=== PATIENT | female | born 1960 | race Caucasian/White ===

== ENCOUNTER → 2021-06-05 15:10 | Outpatient (CLI) | payer OTHER, SELFPAY ==
--- NOTE | ~2021-06-05 | MM_ITS ---
EXAMINATION: MM screening mario BI w gill HISTORY: Screening mammogram TECHNIQUE: Craniocaudal and mediolateral oblique 3-D tomosynthesis images were obtained and synthetic 2-D images were generated. CAD analysis was submitted and interpreted. COMPARISON: No prior mammogram is available for comparison at this institution. BREAST PARENCHYMAL COMPOSITION: There are scattered areas of fibroglandular density. FINDINGS: There is no evidence of suspicious mass, calcification, or architectural distortion to sugg est malignancy in either breast. IMPRESSION: 1. No mammographic evidence of malignancy. 2. Recommend routine screening mammography in one year. BI-RADS Category 1: Negative Reviewed, dictated and finalized at location A.
== END ==
PROVIDERS: PCP Nurse Practitioner Family; Visit Provider Obstetrics & Gynecology
DX: Z12.31 Encounter for screening mammogram for malignant neoplasm of breast (principal)
CPT/HCPCS: 77063; 77067

== ENCOUNTER → 2022-12-10 09:46 | Outpatient (CLI) | payer BC, SELFPAY ==
--- NOTE | ~2022-12-10 | MM_ITS ---
EXAMINATION: MM screening mario BI w gill HISTORY: Screening TECHNIQUE: Craniocaudal and mediolateral oblique 3-D tomosynthesis images were obtained and synthetic 2-D images were generated. CAD analysis was submitted and interpreted. COMPARISON: 06/05/2021 BREAST PARENCHYMAL COMPOSITION: There are scattered areas of fibroglandular density. FINDINGS: There is no evidence of suspicious mass, calcification, or architectural distortion to sugg est malignancy in either breast. There has been no suspicious interval change. IMPRESSION: 1. No mammographic evidence of malignancy. 2. Recommend routine screening mammography in one year. BI-RADS Category 1: Negative Reviewed, dictated and finalized at location B. OGRAPHS CURATOR
== END ==
PROVIDERS: PCP Internal Medicine; Visit Provider Internal Medicine
DX: Z12.31 Encounter for screening mammogram for malignant neoplasm of breast (principal)
CPT/HCPCS: 77063; 77067

== ENCOUNTER → 2023-03-18 10:07 | Outpatient (CLI) | payer BC, SELFPAY ==
--- NOTE | ~2023-03-18 | US_ITS ---
US abdomen complete DATE: 03/18/2023 10:28 INDICATION: Anemia, hereditary spherocytosis TECHNIQUE: Real-time imaging and Doppler analysis of the abdomen COMPARISON: None FINDINGS: The gallbladder is surgically absent. There is hepatic steatosis. No hepatic space-occupying mass lesion is evident. Normal hepatopedal por erika venous flow direction. The pancreas is partially obscured by bowel gas. The common bile duct measures 3 mm, normal. The kidneys each measure approximately 10 cm length. No renal mass lesion or hydronephrosis is eviden t. There is splenomegaly, spleen measuring up to 18.5 cm length. The abdominal aorta is of normal caliber. Inferior vena cava is unremarkable. IMPRESSION: Status post cholecystectomy Hepatic steatosis Splenomegaly Limited evaluation of the pancreas Reviewed, dictated and finalized at Location A. Reviewed, dictated and finalized at location []
== END ==
PROVIDERS: PCP Internal Medicine
DX: D58.0 Hereditary spherocytosis (principal); K76.0 Fatty (change of) liver, not elsewhere classified; R16.1 Splenomegaly, not elsewhere classified; Z90.49 Acquired absence of other specified parts of digestive tract
CPT/HCPCS: 76700

== ENCOUNTER 2024-10-23 12:28 | Outpatient (CLI) | payer BC, SELFPAY ==
--- NOTE | ~2024-10-23 | MM_ITS ---
EXAMINATION: MM screening mario BI w gill HISTORY: Screening mammogram TECHNIQUE: Craniocaudal and mediolateral oblique 3-D tomosynthesis images were obtained and synthetic 2-D images were generated. CAD analysis was submitted and interpreted. COMPARISON: 12/10/2022, 06/05/2021 BREAST PARENCHYMAL COMPOSITION:Not Dense. The breasts are almost entirely fatty FINDINGS: No suspicious mass, calcification, or architectural distortion are identified in either odalys ast to suggest malignancy. There has been no suspicious interval change. IMPRESSION: No mammographic evidence of malignancy. Recommend routine screening mammography in one year. BI-RADS Category 1: Negative Reviewed, dictated and finalized at location . WARE CONFIGURATION ANALYST
== END 2024-10-23 12:29 | disposition home or self-care (01) ==
LOC: MICIMG 12:29
PROVIDERS: PCP Internal Medicine; Visit Provider Internal Medicine
DX: Z12.31 Encounter for screening mammogram for malignant neoplasm of breast (principal)
CPT/HCPCS: 77063; 77067

== ENCOUNTER 2025-03-11 06:27 | Emergency (ER) | payer BC, SELFPAY ==
--- NOTE | ~2025-03-11 | XR_ITS ---
Left wrist Technique: PA, oblique, lateral, and ulnar deviation views were obtained. Clinical History: Pain Findings: There is transverse fracture the distal radius. No other definite fracture identified Joint spaces are preserved. Soft tissues are unremarkable. Impression: Transverse fracture the distal radius, with prominent dorsal irregularity of distal radius on the lat eral view. Consider CT to better evaluate fracture morphology, if indicated. Reviewed, dictated and finalized at location . Impression: Transverse fracture the distal radius, with prominent dorsal irregularity of di stal radius on the lateral view. Consider CT to better evaluate fracture morpho logy, if indicated.
--- OUTSIDE RECORDS SUMMARY | 2025-03-11 06:28 | XMS_ITS | Encounter Summary ---
Author Organization [facility] Address [address] [place] [address] Phone Care Team Providers Care Felt Cutter Name Role Phone Chava Yeboah MD Primary Care Provider [phone] Cora Saenz CUSTOMS AGENT Unavailable [phone] Reason for Visit * Reason Comments Medication Refill Encounter Details Date Type Department Care Team (Late st Contact Info) Description 02/11/2024 Refill [facility] [address] [address] Floyd Angel MD [address] [place] [phone] Medication Refill Social History Tobacco Use Types Packs/Day Years Used Date Smoking Tobacco: Never Smokeless Tobacco: Never Alcohol Use Standard Drinks/Week Comments Yes 6 (1 standard drink = 0.6 oz pur e alcohol) per year Comments Unknown Sex and Gender Information Value Date Recorded Sex Assigned at Not on file Legal Sex Female 12:16 PM CDT Gender Identity Not on file Sexual Orientation Not on file documented as of this encounter Miscellaneous Notes * Telephone Encounter - Madiha Esposito RN - 02/13/2024 8:32 AM CDT No follow up appointment * Telephone Encounter - Madiha Esposito RN - 02/13/2024 7:57 AM CDT Refill request from pharmacy. Please fill if appropriate. documented in this encounter Plan of Treatment Not on file documented as of this encounter Visit Diagnoses Diagnosis Hereditary spherocytic hemolytic anemia (HCC) Hereditary spherocytosis documented in this encounter Care Teams Felt Cutter Relationship Specialty Start Date End Date Chava Yeboah MD [address] [facility] [address] [place] [address] PCP - General Internal Medicine 01/03/23 Cora Saenz APRN [address] [facility] [address] [place] [address] Advanced Practice Nurse 01/03/23 documented as of this encounter
--- OUTSIDE RECORDS SUMMARY | 2025-03-11 06:28 | XMS_ITS | Encounter Summary ---
Author Organization [facility] Address [address] [place] [address] Phone Care Team Providers Care Electric Motor Repairman Name Role Phone Chava Yeboah MD Primary Care Provider [phone] Cora Saenz APRN Unavailable [phone] Reason for Visit * Reason Comments Medication Refill Encounter Details Date Type Department Care Team (Late st Contact Info) Description 05/26/2023 Refill [facility] [address] [place] [address] Floyd Angel MD [address] [place] [phone] Medication Refill Social History Tobacco Use Types [...] on file documented as of this encounter Plan of Treatment Not on file documented as of this encounter Visit Diagnoses Diagnosis Hereditary spherocytic hemolytic anemia (HCC) Hereditary spherocytosis documented in this encounter Care Teams Electric Motor Repairman Relationship Specialty Start Date End Date Chava Yeboah MD [address] [facility] [address] [place] [address] PCP - General Internal Medicine 01/03/23 Cora Saenz APRN [facility] [address] [address] Advanced Practice Nurse 01/03/23 documented as of this encounter
--- OUTSIDE RECORDS SUMMARY | 2025-03-11 06:28 | XMS_ITS | Clinical Summary ---
Author Organization [facility] Address [address] [place] [address] Phone Care Team Providers Care Sander Wooden Pencils Name Role Phone Chava Yeboah MD Primary Care Provider [phone] Cora Saenz TRAVEL RN Unavailable [phone] Allergies Active Allergy Reactions Criticality Noted Date Comments Poison Melvi Extract Itching 02/22/2023 Medications levothyroxine (SYNTHROID) 125 MCG Tablet Take 125 mcg by mouth every morning. 02/01/2023 Active lisinopril (PRINIVIL, ZESTRIL) 10 MG Tablet 12/15/2022 Active ferrous sulfate 325 (65 Fe) MG Tablet Take 325 mg by mouth. 12/17/2022 Active guar gum (BENEFIBER) Powder Take 1 Tbsp by mouth daily. Active folic acid (FOLVITE) 1 MG TabletIndication s:Hereditary spherocytic hemolytic anemia (HCC) TAKE 1 TABLET BY MOUTH EVERY DAY 90 Tablet 1 05/26/2023 Active Active Problems Problem Noted Date Diagnosed Date Hereditary spherocytic hemolytic anemia 03/01/20 Family History Medical History Relation Name Comments Congestive Heart Failure Father Diabetes Father Renal Failure Mother Relation Name Status Comments Brother 1 Alive Brother 2 Alive Child Alive Father Mother Sister 1 Alive Sister 2 Alive Sister 3 Alive Social History Tobacco Use Types Packs/Day Years Used Date Smoking Tobacco: Never Smokeless Tobacco: Never Tobacco Cessation:Counseling Given: Not Answered Alcohol Use Standard Drinks/Week Comments Yes 6 (1 standard drink = 0.6 oz pur e alcohol) per year Comments Unknown Sex and Gender Information Value Date Recorded Sex Assigned at Not on file Legal Sex Female 12:16 PM CDT Gender Identity Not on file Sexual Orientation Not on file Last Filed Vital Signs Vital Sign Reading Time Taken Comments Blood Pressure 124/72 03/22/2023 11:51 AM CDT Pulse 77 03/22/2023 11:51 AM CDT Temperature 36.8 C (98.2 F) 03/22/2023 11:51 AM CDT Respiratory Rate 18 03/22/2023 11:51 AM CDT Oxygen Saturation 99% 03/22/2023 11:51 AM CDT Inhaled Oxygen Concentration - - Weight 85.8 kg (189 lb 1.6 oz) 03/22/2023 11:51 AM CDT Height 162.6 cm (5' 4) 03/22/2023 11:51 AM CDT Body Mass Index 32.46 03/22/2023 11:51 AM CDT Plan of Treatment Health Maintenance Due Date Last Done Comments DEXA Bone Density 1959 Hepatitis C Virus (HCV) Screening 1959 Mammogram 1959 Pap Smear 1980 Cervical Cancer Screening (CCS) 1989 HPV/Cotest 1989 Colonoscopy 2004 Colorectal Cancer Screening 2004 Cologuard 2009 Immunochemical Fecal Occult Blood 2009 Pneumococcal Immunization (5 0+ years) (1 of 1 - PCV) 2009 Zoster Immunization (1 of 2) 2009 Influenza Immunization (#1) 2024 SARS-COV-2 Immunization ( - 2023- season) 2024 Respiratory Syncytial Virus (RSV) Immunization (Adult) (1 - 1-dose 75+ series) 2034 DTaP/Tdap/Td Immunization Discontinued 2020, 07/27/2011 TdaP Immunization Completed 02/09/2021, 07/27/2011 Hepatitis B Immunization Aged Out No longer eligible based on patient's age to complete this topic Meningococcal Immunization (ACWY) Aged Out No longer eligible based on patient's age to complete this topic Rotavirus Immunization Aged Out No lo nger eligible based on patient's age to complete this topic Insurance [facility] Care Teams Sander Wooden Pencils Relationship Specialty Start Date End Date Chava Yeboah MD [address] [address] PCP - General Internal Medicine 01/03/23 Cora Saenz APRN [address] [address] Advanced Practice Nurse 01/03/23
--- OUTSIDE RECORDS SUMMARY | 2025-03-11 06:28 | XMS_ITS | Encounter Summary ---
Author Organization [facility] Address [address] [place] [address] Phone Care Team Providers Care Assembler Metal Furniture Name Role Phone Chava Yeboah MD Primary Care Provider Cora Saenz COMPLIANCE ANALYST Unavailable [phone] Reason for Visit * Reason Comments Medication Refill Encounter Details Date Type Department Care Team (Late st Contact Info) Description 11/23/2023 Refill [facility] [address] [address] Floyd Angel MD [address] [place] [place] [address] Medication Refill Social History Tobacco Use [...] Telephone Encounter - Madiha Esposito RN - 11/23/2023 3:11 PM CST Floyd Angel MD to Sc BF 11/23/23 3:07 PM Patient has no f/u appointment with us. If she does not want to come back to our clinic then needs to get refill with PCP. Thanks E SIFTER AND MILLER * Telephone Encounter - Madiha Esposito RN - 11/23/2023 8:20 AM CST Refill request from pharmacy. Please fill if appropriate. E SIFTER AND MILLER documented in this encounter Plan of Treatment Not on file documented as of this encounter Visit Diagnoses Diagnosis Hereditary spherocytic hemolytic anemia (HCC) Hereditary spherocytosis documented in this encounter Care Teams Assembler Metal Furniture Relationship Specialty Start Date End Date Chava Yeboah MD [address] [address] PCP - General Internal Medicine 01/03/23 Cora Saenz APRN [address] [address] Advanced Practice Nurse 01/03/23 documented as of this encounter
[2025-03-11 06:37] VITALS: BP 144/75; PULSE 80; RESP 18; TEMP 36.9; O2SAT 98
--- OUTSIDE RECORDS SUMMARY | 2025-03-11 07:25 | XMS_ITS | Encounter Summary ---
Author Organization [facility] Address [address] [place] [address] Phone Care Team Providers Care Recyclable Materials Collector Name Role Phone Chava Yeboah MD Primary Care Provider [phone] Cora Saenz APRN Unavailable [phone] Reason for Visit * Reason Comments Medication Refill Encounter Details Date Type Department Care Team (Late st Contact Info) Description 05/26/2023 Refill [facility] [address] [place] [address] Floyd Angel MD [address] [place] [address] [phone] Medication Refill Social History Tobacco Use Types [...] spherocytosis documented in this encounter Care Teams Recyclable Materials Collector Relationship Specialty Start Date End Date Chava Yeboah MD [address] [facility] [address] [place] [address] PCP - General Internal Medicine 01/03/23 Cora Saenz APRN [facility] [address] [address] Advanced Practice Nurse 01/03/23 documented as of this encounter
--- OUTSIDE RECORDS SUMMARY | 2025-03-11 07:25 | XMS_ITS | Clinical Summary ---
Author Organization [facility] Address [address] [place] [address] Phone Care Team Providers Care Blueprint Reader Name Role Phone Chava Yeboah MD Primary Care Provider [phone] Cora Saenz CYBER WORKFORCE DEVELOPER AND MANAGER Unavailable [phone] Allergies Active Allergy Reactions Criticality Noted Date [...] patient's age to complete this topic Insurance [facility] Care Teams Blueprint Reader Relationship Specialty Start Date End Date Chava Yeboah MD [address] [address] PCP - General Internal Medicine 01/03/23 Cora Saenz APRN [address] [address] Advanced Practice Nurse 01/03/23
--- OUTSIDE RECORDS SUMMARY | 2025-03-11 07:25 | XMS_ITS | Encounter Summary ---
Author Organization [facility] Address [address] [place] [address] Phone Care Team Providers Care Burial Vault Setter Name Role Phone Chava Yeboah MD Primary Care Provider [phone] Cora Saenz DIRECTOR SURGICAL Unavailable [phone] Reason for Visit * Reason Comments Medication Refill Encounter Details Date Type Department Care Team (Late st Contact Info) Description 02/11/2024 Refill [facility] [address] [address] Floyd Angel MD [address] [place] [address] Medication Refill Social History Tobacco Use [...] spherocytosis documented in this encounter Care Teams Burial Vault Setter Relationship Specialty Start Date End Date Chava Yeboah MD [address] [facility] [address] [place] [address] PCP - General Internal Medicine 01/03/23 Cora Saenz APRN [address] [facility] [address] [place] [address] Advanced Practice Nurse 01/03/23 documented as of this encounter
--- OUTSIDE RECORDS SUMMARY | 2025-03-11 07:25 | XMS_ITS | Encounter Summary ---
Author Organization [facility] Address [address] [place] [address] Phone Care Team Providers Care Machinery Mover Name Role Phone Chava Yeboah MD Primary Care Provider Cora Saenz ASSISTANT NEWS DIRECTOR Unavailable [phone] Reason for Visit * Reason Comments Medication Refill Encounter Details Date Type Department Care Team (Late st Contact Info) Description 11/23/2023 Refill [facility] [address] [address] Floyd Angel MD [address] [place] [address] Medication Refill Social History Tobacco Use [...] 3:11 PM CST Floyd Angel MD to Dc BF 11/23/23 3:07 PM Patient has no f/u appointment with us. If she does not want to come back to our clinic then needs to get refill with PCP. Thanks RISK ANALYST * Telephone Encounter - Madiha Esposito RN - 11/23/2023 8:20 AM CST Refill request from pharmacy. Please fill if appropriate. RISK ANALYST documented in this encounter Plan of Treatment Not on file documented as of this encounter Visit Diagnoses Diagnosis Hereditary spherocytic hemolytic anemia (HCC) Hereditary spherocytosis documented in this encounter Care Teams Machinery Mover Relationship Specialty Start Date End Date Chava Yeboah MD [address] [address] PCP - General Internal Medicine 01/03/23 Cora Saenz APRN [address] [address] Advanced Practice Nurse 01/03/23 documented as of this encounter
[2025-03-11] MEDS: HYDROcodone/acetaminophen (*CRX) 5-325 MG TABLET 1 TAB PO (07:40)
--- NOTE | 2025-03-11 08:13 | ED_ITS ---
HPI - Extremity Injury (Upper) General Chief Complaint: Extremity Injury, Upper Stated Complaint: L wrist injury Time Seen by Provider: 03/11/25 07:02 Source: patient Mode of arrival: ambulatory Limitations: no limitations History of Present Illness HPI narrative: 64-year-old otherwise healthy here with the complaints of left wrist pain. Patient states that she missed a step on her way to work fell on outstretched hand. She denies any head and neck injuries. Increase in pain with movement. complaint: injury to: wrist (left) Onset (ago): hour(s) (1) Other Extremity Injury: Left: wrist Other injuries: none Handedness: right Place: home Severity: moderate Relieving factors: immobilization and rest Exacerbating factors: movement of extremity Context: fall Associated symptoms: denies other symptoms Related Data Allergies Allergy/AdvReac Type Severity Reaction Status Date / Time No Known Allergies Allergy Verified 03/11/25 06:38 Review of Systems Review of Systems: All systems reviewed & are unremarkable except as noted in HPI and below Constitutional: Constitutional: Reports no additional constitutional complaints Eyes: Eyes: Reports no additional eye complaints ENT: Reports system reviewed and no additional complaints, except as documented Cardiovascular: Cardiovascular: Reports no additional cardiovascular complaints Respiratory: Respiratory: Reports no additional respiratory complaints Gastrointestinal: Gastrointestinal: Reports no additional gastrointestinal complaints Genitourinary: Genitourinary: Reports no additional female genitourinary complaints Musculoskeletal: Musculoskeletal: Reports as per HPI Neurologic: Reports system reviewed and no additional complaints, except as documented Psychiatric: Psychiatric: Reports no additional psychiatric complaints Exam Narrative: GENERAL: Well-appearing, well-nourished, and in no acute distress. HEAD: Normocephalic, atraumatic. EYES: PERRLA and EOMI. ENT: Nares clear, no rhinorrhea or epistaxis. Mucous membranes moist. NECK: Supple. CHEST: Clear to auscultation. No respiratory distress. HEART: Regular rate and rhythm. No murmur heard. Normal peripheral pulses. EXTREMITIES: Normal range of motion. No edema. Examination of the left wrist shows mild soft tissue swelling no obvious deformity noted. Good radial pulse. SKIN: Warm, dry, no rash. NEURO: No focal deficits. Alert and oriented x3. PSYCH: Normal mood and affect. Course Course Emergency Course: Notified patient about her x-ray findings. Recommended her to take pain medication as prescribed, make an appointment with the orthopedic doctor for follow-up. Vital Signs Vital signs: Vital Signs Temperature 36.9 C 03/11/25 06:37 Pulse Rate 80 03/11/25 06:37 Respiratory Rate 18 03/11/25 06:37 Blood Pressure 144/75 H 03/11/25 06:37 Pulse Oximetry 98 03/11/25 06:37 Temperature 36.9 C 03/11/25 06:37 Pulse Rate 80 03/11/25 06:37 Respiratory Rate 18 03/11/25 06:37 Blood Pressure 144/75 H 03/11/25 06:37 Pulse Oximetry 98 03/11/25 06:37 MDM - Extremity Injury (Upper) Differential Diagnosis Differential diagnosis: Likely sprain and strain of wrist and fracture of wrist Imaging Data Radiologist's impression: ITS Impressions Wrist X-Ray 03/11/25 07:01 Impression: Transverse fracture the distal radius, with prominent dorsal irregularity of distal radius on the lateral view. Consider CT to better evaluate fracture morphology, if indicated. Discharge Plan Discharge Clinical Impression: Distal radius fracture, left Qualifiers: Encounter type: initial encounter Fracture type: closed Fracture morphology: unspecified fracture morphology Qualified Code(s): S52.502A - Unspecified fracture of the lower end of left radius, initial encounter for closed fracture Patient Disposition: Home Condition: Stable Instructions: Wrist Fracture in Adults (ED) Additional Instructions: take pain meds as prescribed , follow with Ortho Patient Language: Tanzanian Prescriptions: New hydrocodone-acetaminophen 5-325 mg tablet 1 tablet PO Q8H PRN (Reason: pain) Qty: 20 0RF Follow-up/Referrals: Obinna,MD Chava [Primary Care Provider] - Santi Juares MD [Physician] - Time of Disposition: 08:20
== END 2025-03-11 08:30 | disposition home or self-care (01) ==
PROVIDERS: Emergency Provider Family Medicine; PCP Internal Medicine
DX: S52.502A Unspecified fracture of the lower end of left radius, initial encounter for closed fracture (principal); W01.0XXA Fall on same level from slipping, tripping and stumbling without subsequent striking against object, initial encounter
CPT/HCPCS: 29125; 73110; 99284; A4565; A9270

== ENCOUNTER 2025-03-15 15:46 | Outpatient (CLI) | payer BC, SELFPAY ==
--- NOTE | ~2025-03-15 | CT_ITS ---
Noncontrast CT scan of the left wrist Clinical history 1 distal radial fracture TECHNIQUE: Axial noncontrast imaging of the left wrist was performed. Sagittal and coronal reformatte d images were constructed. Dose reduction technique was used on this scan by utilizing automated expo sure control and iterative reconstruction technique. The dose-length product (DLP) was 91.61 mGy-cm. Findings: There is a comminuted, predominantly transverse fracture of the distal radius. There is pro bable focal intra-articular extension without cortical surface step-off. There is an oblique componen t of the fracture line extending slightly more proximally to the radial metaphyseal region (series 30 1 image 14). There is mild dorsal displacement of a dorsal fragment (axial image 35). No ulnar fracture is intact. Remainder of the wrist bones are intact. Joint spaces are intact. There is soft tissue edema about the distal radial fracture site. No other distinct soft tissue reali ty evident. IMPRESSION: Comminuted intra-articular fracture of the distal radius, as detailed above. Reviewed, dictated and finalized at location M.
== END 2025-03-15 15:47 | disposition home or self-care (01) ==
LOC: MICIMG 15:48
PROVIDERS: PCP Plastic Surgery; Visit Provider Plastic Surgery
DX: S52.572A Other intraarticular fracture of lower end of left radius, initial encounter for closed fracture (principal); X58.XXXA Exposure to other specified factors, initial encounter
CPT/HCPCS: 73200

== ENCOUNTER 2025-03-19 08:00 | Outpatient (CLI) | payer BC, SELFPAY ==
--- NOTE | ~2025-03-19 | XR_ITS ---
Left wrist Technique: PA, oblique, lateral, and ulnar deviation views were obtained. Clinical History: Fracture COMPARISON: 03/11/2025 Findings: Comminuted fracture of the distal radius is again present, essentially stable from prior ex am. Overlying cast or splint present. Soft tissues are unremarkable. Impression: No significant interval change in comminuted fractures of the distal radius. Cast in place. Reviewed, dictated and finalized at location M. Impression: No significant interval change in comminuted fractures of the distal radius. Ca st in place.
== END 2025-03-19 08:01 | disposition home or self-care (01) ==
LOC: MICIMG 08:02
PROVIDERS: PCP Plastic Surgery; Visit Provider Plastic Surgery
DX: S52.502A Unspecified fracture of the lower end of left radius, initial encounter for closed fracture (principal); X58.XXXA Exposure to other specified factors, initial encounter
CPT/HCPCS: 73110

== ENCOUNTER 2025-03-26 07:05 | Outpatient (CLI) | payer BC, SELFPAY ==
--- NOTE | ~2025-03-26 | XR_ITS ---
Left wrist Technique: PA and lateral views were obtained. Clinical History: Fracture COMPARISON: 03/19/2025 Findings: Cast overlying the wrist obscures fine bony detail. Comminuted fracture of the distal radiu s is stable in alignment from prior exam. No other fracture identified.. Impression: Comminuted fractures of the distal radius is essentially unchanged, now with cast in place. Reviewed, dictated and finalized at location M. Impression: Comminuted fractures of the distal radius is essentially unchanged, now with ca st in place.
== END 2025-03-26 07:06 | disposition home or self-care (01) ==
LOC: MICIMG 07:06
PROVIDERS: PCP Plastic Surgery; Visit Provider Plastic Surgery
DX: S52.502A Unspecified fracture of the lower end of left radius, initial encounter for closed fracture (principal); X58.XXXA Exposure to other specified factors, initial encounter
CPT/HCPCS: 73110

== ENCOUNTER 2025-04-05 10:54 | Outpatient (CLI) | payer BC, SELFPAY ==
--- NOTE | ~2025-04-05 | DEXA_ITS ---
Bone Density Report Name: YOHANA JIMENEZ Age: 64 Sex: Female Ethnicity: White Date of : 1960 Indication: postmenopausal; screening for osteoporosis; prior fracture; Referring Provider: ObinnaChava Study: Bone densitometry was performed. Exam Date: April 05, 2025 Accession number: [id number] Bone Density: Region BMD T-score Z-score Classification AP Spine(L1-L4) 0.984 -0.6 1.2 Normal Femoral Neck (Left) 0.693 -1.4 0.1 Osteopenia Total Hip (Left) 0.899 -0.4 0.9 Normal Femoral Neck (Right) 0.666 -1.6 -0.1 Osteopenia Total Hip (Right) 0.914 -0.2 1.0 Normal Total Hip Mean 0.907 -0.3 1.0 Normal World Health Organization criteria for BMD impression classify patients as: Normal (T-score at or above -1.0), Osteopenia (T-score between -1.0 and -2.5), or Osteoporosis (T-score at or below -2.5). 10-year Fracture Risk(1): Major Osteoporotic Fracture 15% Hip Fracture 1.7% Reported Risk Factors: [place] (), Neck BMD=0.666, BMI=32.9, previous fracture (1) FRAX(R) Version 3.08. Fracture probability calculated for an untreated patient. Fracture probability may be lower if the patient has received treatment. Clinical Information Provided by Patient: Has had a low trauma fracture Has used the following medications: Vitamin D Patient maximum height was 64 Menopause Age: 41 No regular weight bearing exercise Drinks caffeinated beverages Onset of menses at age 11 Number of children 1 Impression: The patient has low bone mass, based on the Right Femoral Neck T-score. The patient has an estimated ten-year risk of hip fracture of 1.7% and an estimated ten-year risk of major fracture of 15%, based on the WHO FRAX algorithm. The patient has risk factors, including: previous fracture. Discussion: BONE DENSITY IS LOW AT ONE OR MORE SKELETAL SITES. This patient's lowest T-score is low at one or more skeletal sites. It meets the World Health Organization's (WHO) criteria for ?low bone mass? (T-score between -1.0 and -2.5). The patient's 10-year risk of fracture as calculated by FRAX is less than the threshold where pharmacological therapy is recommended by the National Osteoporosis Foundation (NOF). However, all treatment decisions require clinical judgment and consideration of individual patient factors, including patient preferences, comorbidities, previous drug use, risk factors not captured in the FRAX model (e.g., frailty, falls, vitamin D deficiency, increased bone turnover, interval significant decline in bone density) and possible under or overestimation of fracture risk by FRAX. The patient should follow a healthful lifestyle (good nutrition with adequate calcium and vitamin D, and appropriate weight-bearing exercise). Follow-Up: Consider repeating this study in 2 to 3 years to reassess this patient's status, or sooner if there is some new clinical indication. Reported by: LATOYA on 04/05/2025 11:16:00 AM. Reviewed, dictated and finalized at location A.
== END 2025-04-05 10:55 | disposition home or self-care (01) ==
LOC: MICIMG 10:55
PROVIDERS: PCP Internal Medicine; Visit Provider Internal Medicine
DX: M85.89 Other specified disorders of bone density and structure, multiple sites (principal); Z78.0 Asymptomatic menopausal state; Z13.820 Encounter for screening for osteoporosis
CPT/HCPCS: 77080

== ENCOUNTER 2025-04-16 07:22 | Outpatient (CLI) | payer BC, SELFPAY ==
--- NOTE | ~2025-04-16 | XR_ITS ---
EXAM/ PROCEDURE: XR wrist LT min 3V - 04/16/2025 7:27 CDT HISTORY: 64 years old Female with S52.502A - Unspecified fracture of the lower end of left ... COMPARISON: 03/26/2025 TECHNIQUE: Four view(s) FINDINGS/ IMPRESSION: No significant interval change. Cast overlying the wrist obscures fine bony detail. Comminuted fractu re of the distal radius is again seen with stable alignment. No new fracture identified. Reviewed, dictated and finalized at location A.
== END 2025-04-16 07:23 | disposition home or self-care (01) ==
PROVIDERS: PCP Internal Medicine; Visit Provider Plastic Surgery
DX: S52.502A Unspecified fracture of the lower end of left radius, initial encounter for closed fracture (principal); X58.XXXA Exposure to other specified factors, initial encounter
CPT/HCPCS: 73110

== ENCOUNTER 2025-04-30 08:39 | Outpatient (CLI) | payer BC, SELFPAY ==
--- NOTE | ~2025-04-30 | XR_ITS ---
EXAM/ PROCEDURE: XR wrist LT min 3V - 04/30/2025 8:50 CDT HISTORY: 64 years old Female with S52.502A - Unspecified fracture of the lower end of left ... COMPARISON: 04/16/2025 TECHNIQUE: Three view(s) FINDINGS/ IMPRESSION: Healing fracture of the left distal radius. Normal stable alignment. Interval removal of cast materia l. Joint space narrowing, subchondral sclerosis, subchondral cyst formation and osteophyte formation, co mpatible with mild osteoarthritis. Reviewed, dictated and finalized at location A.
== END 2025-04-30 08:40 | disposition home or self-care (01) ==
LOC: MICIMG 08:41
PROVIDERS: PCP Internal Medicine; Visit Provider Physician Assistant Surgical
DX: S52.502D Unspecified fracture of the lower end of left radius, subsequent encounter for closed fracture with routine healing (principal); X58.XXXD Exposure to other specified factors, subsequent encounter; M25.832 Other specified joint disorders, left wrist; M85.442 Solitary bone cyst, left hand; M25.732 Osteophyte, left wrist
CPT/HCPCS: 73110

== ENCOUNTER 2025-05-28 09:16 | Outpatient (CLI) | payer BC, SELFPAY ==
--- NOTE | ~2025-05-28 | XR_ITS ---
XR wrist LT min 3V 05/28/2025 09:44 Indication: Left wrist pain. Follow-up fracture. Procedure: 4 views left wrist Comparison: Comparison to multiple prior studies sequentially, with oldest reviewed study dated 03/19/2025. Findings: Stable near-anatomic fracture distal aspect of the radius. No significant change in alignment compared with 04/30/2025. No new fractures. No focal soft tissue abnormality. There is mild polyarticular osteoarthritis. Impression: 1: Stable alignment of near-anatomic fracture distal aspect of the radius. Reviewed, dictated and finalized at location A. Impression: 1: Stable alignment of near-anatomic fracture distal aspect of the radius.
== END 2025-05-28 09:17 | disposition home or self-care (01) ==
LOC: MICIMG 09:17
PROVIDERS: PCP Internal Medicine; Visit Provider Internal Medicine
DX: S52.592D Other fractures of lower end of left radius, subsequent encounter for closed fracture with routine healing (principal); X58.XXXD Exposure to other specified factors, subsequent encounter
CPT/HCPCS: 73110